=== PATIENT | male | born 1980 | race Caucasian/White ===

== ENCOUNTER 2017-02-17 10:44 | Emergency (ER) | payer OTHER ==
[~2017-02-17] VITALS: Ht 175.3 cm; Wt 75.0 kg
[2017-02-17 13:17] VITALS: BP 122/68
== END 2017-02-17 13:17 | disposition home or self-care (01) ==
LOC: ED 10:44
DX: F41.9 Anxiety disorder, unspecified (principal); F10.129 Alcohol abuse with intoxication, unspecified
CPT/HCPCS: J2060

== ENCOUNTER 2018-10-13 18:36 | Emergency (ER) | payer OTHER | END 2018-10-13 20:27 | disposition other institution (70) | LOC: ED 18:36 | DX: Z02.89 Encounter for other administrative examinations (principal) ==

== ENCOUNTER 2018-10-13 18:36 | Emergency (ER) | payer OTHER ==
[~2018-10-13] VITALS: Ht 175.3 cm; Wt 74.4 kg
[2018-10-13 18:52] VITALS: Ht 175.3 cm; Wt 74.4 kg
[2018-10-13 20:27] VITALS: BP 161/106
== END 2018-10-13 20:27 | disposition other institution (70) ==
LOC: ED 18:36
DX: I10 Essential (primary) hypertension (principal); F10.10 Alcohol abuse, uncomplicated; F41.9 Anxiety disorder, unspecified
CPT/HCPCS: J2060

== ENCOUNTER 2019-03-27 14:47 | Emergency (ER) | payer OTHER ==
[~2019-03-27] VITALS: Ht 177.8 cm; Wt 71.2 kg
[2019-03-27 15:16] VITALS: Ht 177.8 cm; Wt 71.2 kg
[2019-03-27 17:11] VITALS: BP 146/83
== END 2019-03-27 17:11 | disposition home or self-care (01) ==
LOC: ED 14:47
DX: I10 Essential (primary) hypertension (principal); F41.9 Anxiety disorder, unspecified; F17.200 Nicotine dependence, unspecified, uncomplicated; Z71.6 Tobacco abuse counseling
CPT/HCPCS: 99406

== ENCOUNTER 2019-05-31 16:45 | Emergency (ER) | payer OTHER ==
[~2019-05-31] VITALS: Ht 175.3 cm; Wt 71.2 kg
[2019-05-31 16:50] VITALS: Ht 175.3 cm; Wt 71.2 kg
[2019-05-31 19:57] VITALS: BP 179/77
== END 2019-05-31 19:57 | disposition home or self-care (01) ==
LOC: ED 16:45
DX: F41.9 Anxiety disorder, unspecified (principal); I10 Essential (primary) hypertension
CPT/HCPCS: 82962

== ENCOUNTER 2020-03-25 04:48 | Inpatient (IN) | payer OTHER ==
[~2020-03-25] VITALS: Ht 175.3 cm; Wt 76.8 kg
[2020-03-25 05:01] VITALS: Ht 175.3 cm; Wt 76.8 kg
[2020-03-25 08:49] LABS: BASOPHIL % 0.8 % (0-2); PLATELET COUNT 132 x10^3mcL (130-400)
[2020-03-25 08:57] LABS: RED CELL DISTRIBUTION WIDTH 15.1 % (11.5-14.5)
[2020-03-25 09:06] LABS: CALCIUM 8.1 mg/dL (8.5-10.1); CHLORIDE SERUM 102 mmol/L (98-107); CREATININE SERUM 0.7 mg/dL (0.7-1.3); GFR1 > 60 mL/min; GLUCOSE SERUM 109 mg/dL (74-106); POTASSIUM SERUM 4.5 mmol/L (3.5-5.1); SODIUM SERUM 135 mmol/L (136-145)
[2020-03-25 09:10] LABS: ALBUMIN 3.5 g/dL (3.4-5.0); ALKALINE PHOSPHATASE 56 U/L (46-116); ALT/SGPT 29 U/L (16-63); AST/SGOT 36 U/L (15-37); BILIRUBIN TOTAL 0.7 mg/dL (0.20-1.00); LIPASE 189 IU/L (73-393); TOTAL PROTEIN, SERUM 6.7 g/dL (6.4-8.2)
[2020-03-25 10:57] LABS: T3 TOTAL 1.36 ng/mL
[2020-03-25 10:59] LABS: MAGNESIUM 2.1 mg/dL (1.8-2.4); PHOSPHOROUS 2.7 mg/dL (2.5-4.9)
[2020-03-25 11:06] LABS: microscopic required? NO
[2020-03-25 11:09] LABS: FREE T4 0.92 ng/dL (0.76-1.46); FREE THYROXINE INDEX 2.5 ug/dL (1.4-4.5); T4(THYROXINE) 7.1 ug/dL (4.7-13.3)
[2020-03-25 11:11] LABS: UA SPECIFIC GRAVITY 1.025 (1.005-1.035); urine erythrocyte NEGATIVE (NEGATIVE)
[2020-03-25 11:30] LABS: AMPHETAMINE QUAL UR NONE DETECTED (See below)
[2020-03-25 14:43] VITALS: BP 182/104
[2020-03-25 20:41] VITALS: BP 149/71
[2020-03-26 06:29] VITALS: BP 141/69
[2020-03-26 06:58] LABS: PLATELET COUNT 137 x10^3mcL (130-400)
[2020-03-26 07:12] LABS: RED CELL DISTRIBUTION WIDTH 15.9 % (11.5-14.5)
[2020-03-26 07:14] LABS: CARBON DIOXIDE 27.8 mmol/L (21-32); CHLORIDE SERUM 100 mmol/L (98-107); CREATININE SERUM 0.9 mg/dL (0.7-1.3); GFR1 > 60 mL/min; GLUCOSE SERUM 101 mg/dL (74-106); MAGNESIUM 2.1 mg/dL (1.8-2.4); PHOSPHOROUS 2.8 mg/dL (2.5-4.9); POTASSIUM SERUM 3.6 mmol/L (3.5-5.1); SODIUM SERUM 134 mmol/L (136-145)
[2020-03-26 07:51] VITALS: BP 129/58
[2020-03-26 11:21] VITALS: BP 129/58
[2020-03-26] MEDS ORDERED: AMO500 PO (13:55)
[2020-03-26] MEDS ORDERED: IND10 PO (13:55)
[2020-03-26] MEDS ORDERED: PRI20 PO (13:55)
[2020-03-26] MEDS ORDERED: BIA500 PO (13:55)
[2020-03-26] MEDS ORDERED: FER300 PO (13:55)
== END 2020-03-26 14:44 | disposition home or self-care (01) | DRG 253 ==
LOC: ED 04:48 → DU 10:16
PROVIDERS: Emergency Medicine; Internal Medicine Gastroenterology; ADMIT Student in an Organized Health Care Education/Training Program; ATTEND Student in an Organized Health Care Education/Training Program
PROC: 0DB68ZX Excision of Stomach, Via Natural or Artificial Opening Endoscopic, Diagnostic (ICD-10-PCS; principal; 2020-03-25 13:30)
DX: K92.2 Gastrointestinal hemorrhage, unspecified (principal); N17.0 Acute kidney failure with tubular necrosis; F41.9 Anxiety disorder, unspecified; I10 Essential (primary) hypertension; Z87.891 Personal history of nicotine dependence; D62 Acute posthemorrhagic anemia; E87.1 Hypo-osmolality and hyponatremia
CPT/HCPCS: 43235; 83880; 84439; C9113; G0378; J1200; J1610; J2250; J2310; J2916; J3010; J3490; J7030